=== PATIENT | male | born 1995 | race Two or more races ===

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

== ENCOUNTER 2017-01-03 18:28 | Emergency (ER) | payer BC, MEDICAID ==
[~2017-01-03] VITALS: Ht 188 cm; Wt 79.4 kg
[~2017-01-03 18:28] MED LIST: IBUPROFEN800 MG ORAL; NKM
[2017-01-03] MEDS ORDERED: IBUPROFEN600 MG ORAL (19:02)
[2017-01-03 19:08] VITALS: BP 159/62
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
--- NOTE | 2017-01-04 11:58 | Diagnostic Imaging Report ---
Indication: Pain right ankle Comparison: None Findings: 3 views of the right ankle obtained. No acute fracture, malalignment, periostitis, or osteochondral defects are identified. Soft tissues are unremarkable. Impression: Negative examination
== END 2017-01-03 19:08 | disposition home or self-care (01) ==
LOC: EMR 19:00
DX: S93.401A Sprain of unspecified ligament of right ankle, initial encounter (principal); V13.4XXA Pedal cycle driver injured in collision with car, pick-up truck or van in traffic accident, initial encounter
CPT/HCPCS: 99283

== ENCOUNTER 2018-01-27 11:33 | Emergency (ER) | payer BC, OTHER ==
[~2018-01-27] VITALS: Ht 182.9 cm; Wt 73.5 kg
[~2018-01-27 11:33] MED LIST changes: +IBUPROFEN600 MG ORAL
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
[2018-01-27 13:18] VITALS: BP 123/77
[2018-01-27] MEDS ORDERED: IBUPROFEN600 MG ORAL (13:21)
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
== END 2018-01-27 13:18 | disposition home or self-care (01) ==
LOC: EMR 12:34
DX: S80.11XA Contusion of right lower leg, initial encounter (principal); F17.200 Nicotine dependence, unspecified, uncomplicated; V18.0XXA Pedal cycle driver injured in noncollision transport accident in nontraffic accident, initial encounter; Y92.89 Other specified places as the place of occurrence of the external cause
CPT/HCPCS: 99283

== ENCOUNTER 2018-07-03 20:51 | Emergency (ER) | payer BC, OTHER ==
[~2018-07-03] VITALS: Ht 185.4 cm; Wt 77.1 kg
[2018-07-03] MEDS ORDERED: NKM (20:59)
[2018-07-03 21:06] VITALS: BP 122/73
--- NOTE | 2018-07-03 21:09 | Emergency Room Report ---
History of Present Illness General Chief Complaint: Chest Pain Source: Patient Present Illness HPI Patient started feeling right-sided chest pain when he was with his girlfriend yesterday. He denies any trauma to the area. The pain is lateral and also on the inside of his scapula on that right-hand side. He denies fevers, cough, nausea, vomiting or diarrhea. Other no rashes. He denies sore throat. He's not taking any medication. He's not had pain like this before. He denies any cardiac problems. There is no swelling in his legs or in his calves. He rates the pain 5/10 and aching positional and somewhat pleuritic. He had to leave work today. Allergies: Coded Allergies: No Known Allergies (Unverified , 07/02/16) Patient History Past Medical History: see triage record Social History: Denies: smoking Social History Narrative has girlfriend - aliya Reviewed Nursing Documentation: PMH: Agreed; PSxH: Agreed Nursing Documentation-[facility] Past Medical History: No Stated History Review of Systems All Other Systems: negative except mentioned in HPI Physical Exam Vital Signs Date Time Temp Pulse Resp B/P (MAP) Pulse Ox O2 Delivery O2 Flow Rate FiO2 07/03/18 20:56 98.4 69 16 122/73 98 Room Air Sp02 EP Interpretation: reviewed, normal General Appearance: well appearing, no apparent distress, GCS 15 Head: normocephalic, atraumatic Eyes: bilateral eye normal inspection, bilateral eye PERRL ENT: hearing grossly normal, normal voice Neck: full range of motion, supple Respiratory: no respiratory distress, speaking full sentences, other - Chest wall tenderness laterally on the right-hand side in addition there is muscle spasm medial side of the scapula on the right. Cardiovascular #1: normal peripheral pulses, regular rate, rhythm, no edema Cardiovascular #2: 2+ radial (R) Gastrointestinal: normal inspection, scaphoid Musculoskeletal: digits/nails normal, gait/station normal, normal range of motion, no calf tenderness Neurologic: alert, oriented x3, normal gait, grossly normal Psychiatric: mood/affect normal Skin: no rash Medical Decision Making Diagnostic Impression: Primary Impression: Right-sided chest pain Additional Impression: Muscle spasm ER Course Patient presents with right-sided chest pain for 1 day. Differential includes pneumothorax, pneumonia, muscle strain, muscle spasm and costochondritis versus pleurisy amongst others. The patient will be evaluated with EKG and chest x- ray. The patient will be given a dose of ibuprofen here. EKG without injury. Chest x-ray clear. Patient improved with treatment. No medical emergency at this time. Discussed treatment plan with the patient. Patient stable for outpatient observation and treatment. EKG Diagnostic Results Rate: normal Rhythm: NSR ST Segments: no acute changes - incomplete RBBB Rhythm Strip Diag. Results EP Interpretation: yes Rhythm: NSR, no PVC's, no ectopy Chest X-Ray Diagnostic Results Chest X-Ray Diagnostic Results : Chest X-Ray Ordered: Yes # of Views/Limited/Complete: 1 View Indication: Chest Pain EP Interpretation: Yes Interpretation: no consolidation, no effusion, no pneumothorax Impression: No acute disease Electronically Signed by: Electronically signed by Matteo Borjas MD Last Vital Signs Date Time Temp Pulse Resp B/P (MAP) Pulse Ox O2 Delivery O2 Flow Rate FiO2 07/03/18 22:24 98.4 79 16 121/70 98 Room Air Status: improved Disposition: HOME, SELF-CARE Condition: Improved Scripts Methocarbamol* (ROBAXIN*) 500 Mg Tablet 500 MG PO TID, #10 TAB 0 Refills Prov: Matteo Borjas MD 07/03/18 Tramadol Hcl* (ULTRAM*) 50 Mg Tablet 50 MG ORAL Q6H PRN for For Pain, #6 TAB 0 Refills Prov: Matteo Borjas MD 07/03/18 Ibuprofen* (MOTRIN*) 600 Mg Tablet 600 MG ORAL Q6H PRN for For Pain, #20 TAB Prov: Matteo Borjas MD 07/03/18 Matteo Borjas MD Jul 03, 2018 21:09
--- NOTE | 2018-07-03 21:36 | Diagnostic Imaging Report ---
EXAM: XR Chest, 1 View CLINICAL HISTORY: CP TECHNIQUE: Frontal view of the chest. COMPARISON: No relevant prior studies available. FINDINGS: Lungs: Unremarkable. No consolidation. Pleural space: Unremarkable. No pneumothorax. Heart: Unremarkable. No cardiomegaly. Mediastinum: Unremarkable. Bones/joints: Unremarkable. IMPRESSION: Normal chest x-ray.
[2018-07-03] MEDS ORDERED: IBUPROFEN600 MG ORAL (22:10)
[2018-07-03] MEDS ORDERED: TRAMADOL HCL50 MG ORAL (22:10)
[2018-07-03] MEDS ORDERED: ROBAXIN500 MG PO (22:10)
[2018-07-03 22:24] VITALS: BP 121/70
== END 2018-07-03 22:25 | disposition home or self-care (01) ==
LOC: EMR 22:20
DX: R07.9 Chest pain, unspecified (principal); M62.838 Other muscle spasm; M25.511 Pain in right shoulder
CPT/HCPCS: 71045; 93005; 99283

== ENCOUNTER 2018-07-12 08:02 | Emergency (ER) | payer BC ==
[~2018-07-12] VITALS: Ht 185.4 cm; Wt 77.1 kg
[~2018-07-12 08:02] MED LIST changes: +ROBAXIN500 MG PO; +TRAMADOL HCL50 MG ORAL
[2018-07-12 08:23] VITALS: BP 115/63
--- NOTE | 2018-07-12 08:30 | NUR ---
ED Nurse Note: Patient walked into ED c/o right shoulder pain. patient was here at [facility] on 07/03/18, patient reports he still has the same pain. patient has not seen his primary doctor yet. patient is alert awake x4 ambulatory steady gait, breathing unlabored and even.
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
[2018-07-12] MEDS ORDERED: TRAMADOL HCL50 MG ORAL (08:42)
[2018-07-12] MEDS ORDERED: ROBAXIN500 MG PO (08:42)
[2018-07-12 08:55] VITALS: BP 115/63
== END 2018-07-12 08:55 | disposition home or self-care (01) ==
LOC: EMR 08:33
DX: M62.838 Other muscle spasm (principal)
CPT/HCPCS: 99282